=== PATIENT | female | born 1955 | race Caucasian/White ===

== ENCOUNTER 2022-07-20 01:58 | Emergency (ER) | payer OTHER ==
[~2022-07-20] VITALS: Ht 154.9 cm; Wt 90.7 kg
[2022-07-20 02:05] VITALS: BP_SYST 146
--- NOTE | 2022-07-20 02:05 | NUR ---
Triaged patient and placed in ER bed 3 for evaluation. Mildly elevated BP otherwise VSS. Bed placed in lowest position with side rails up. Instructed to notify ED staff for any changes in condition or worsening of symptoms while waiting to be seen by a provider. Patient verbalized understanding. Report given to Negra ROBERT for conitnuity of care.
--- NOTE | 2022-07-20 02:17 | NUR ---
PT AA&OX4. AFEBRILE. NAD. C/O L CHEEK PAIN W/ SWELLING. PER PT, SHE HAS AN OLD ROOT CANAL ON HER LEFT UPPER MOLAR WHERE SHE THINKS THE CAP FELL OFF AND THAT SHE ACCIDENTALLY POKED THAT TOOTH. PT TOOK IBUPROFEN AT HOME @ 1800 YESTERDAY BEFORE GOING TO WORK. AMBULATORY W/ STEADY GAIT. SAFE & HAZARD FREE ENVIRONMENT PROVIDED.
--- NOTE | 2022-07-20 02:56 | NUR ---
ER Dr. GARCÍA at bedside examining patient.
[2022-07-20] MEDS ORDERED: CLIN-142 PO (03:05)
[2022-07-20] MEDS ORDERED: IBUP-1969 PO ×2 (03:05)
[2022-07-20] MEDS ORDERED: IBUP-2018 PO (03:09)
--- NOTE | 2022-07-20 03:13 | NUR ---
Patient given written and verbal discharge instructions and verbalizes understanding. ER MD discussed with patient the results and treatment provided. Patient in stable condition. ID arm band removed. Rx of CLINDAMYCIN & IBUPROFEN given. Patient educated on pain management and to follow up with PMD. Pain Scale 0/10. Opportunity for questions provided and answered. Medication side effect fact sheet provided.
== END 2022-07-20 03:12 | disposition home or self-care (01) ==
LOC: SED 01:58
DX: K04.7 Periapical abscess without sinus (principal); L03.211 Cellulitis of face; Z88.2 Allergy status to sulfonamides; Z88.6 Allergy status to analgesic agent; Z88.8 Allergy status to other drugs, medicaments and biological substances; Z79.899 Other long term (current) drug therapy
CPT/HCPCS: 70486-TC; 76376; 99284